=== PATIENT | male | born 1945 | race Caucasian/White ===

== ENCOUNTER 2017-03-11 15:30 | Observation (INO) | payer OTHER ==
[~2017-03-11] VITALS: Ht 182.9 cm; Wt 100.4 kg
[~2017-03-11 15:30] MED LIST: AMLODIPINE BESYL5 MG PO; HYDROCHLOROTHIA25 MG PO; LEVEMIR FL100 UNIT/1 SC; LISINOPRIL20 MG PO; LO-DOSE ASPIRIN81 M2 PO; LOPRESSOR25 MG PO; METFORMIN HCL1000 MG PO; TAMSULOSIN HCL0.4 MG PO; VITAMIN B12 100MCG PO; VITAMIN D-32000 UNI2 PO
[2017-03-11 16:47] LABS: HEMATOCRIT 36.4 % (38.0-50.0); MCHC 33.8 G/DL (30.0-36.0); MCV 88.8 FL (86-99); MEAN PLAT.VOLUME 10.3 uM^3 (9.0-12.4); PLATELET COUNT 223 K/uL (156-360); RBC DIS.WIDTH-CV 12.8 % (11.8-14.6); RBC DIS.WIDTH-SD 41.9 % (39-53); WHITE BLOOD COUNT 7.5 K/uL (4.1-10.2)
[2017-03-11 16:56] LABS: CHLORIDE 109 mEq/L (99-109); POTASSIUM 4.3 mEq/L (3.7-5.4); SODIUM 140 mEq/L (136-147)
[2017-03-11 16:58] LABS: GLUCOSE 183 mg/dL (70-99)
[2017-03-11 16:59] LABS: ANION GAP 10 MEQ/L (2-14)
[2017-03-11 17:02] LABS: GFR ESTIMATE (CALCULATED) 49 mL/min/; UREA NITROGEN (BUN) 27 mg/dL (9-23)
[2017-03-11] MEDS ORDERED: NOVOLOG 10100 UNITS/ SC (19:16)
[2017-03-11] MEDS ORDERED: NIZORAL SHAMPO120 ML TP (19:16)
[2017-03-11] MEDS ORDERED: PLAVIX75 MG PO (19:16)
[2017-03-11] MEDS ORDERED: SIMVASTATIN20 MG PO (19:16)
[2017-03-12 03:40] VITALS: BP 166/77
[2017-03-12 05:28] VITALS: BP 154/71
[2017-03-12 05:54] LABS: HEMATOCRIT 33.9 % (38.0-50.0); MCH 31.1 PG (29.0-34.0); MCHC 34.2 G/DL (30.0-36.0); MCV 90.9 FL (86-99); PLATELET COUNT 207 K/uL (156-360); RBC DIS.WIDTH-SD 42.7 % (39-53); RED BLOOD COUNT 3.73 M/uL (4.00-5.50); WHITE BLOOD COUNT 6.8 K/uL (4.1-10.2)
[2017-03-12 06:20] LABS: ALKALINE PHOSPHATASE 60 IU/L (3-129); ANION GAP 8 MEQ/L (2-14); CHLORIDE 109 MEQ/L (99-109); DIRECT BILIRUBIN 0.1 mg/dL (0.0-0.3); GFR ESTIMATE (CALCULATED) 45 mL/min/; GLUCOSE 167 mg/dL (70-99); HDL CHOLESTEROL 25 MG/DL (Desirable>=40); LDL CHOLESTEROL 72 mg/dL (Desirable<100); NON-HDL CHOLESTEROL 113 mg/dL (Desirable<160); POTASSIUM 4.3 MEQ/L (3.7-5.4); SAMPLE HEMOLYSIS CHECK 0; SAMPLE ICTERIC CHECK 0; SAMPLE LIPEMIA CHECK 0; SODIUM 142 MEQ/L (136-147); TOTAL BILIRUBIN 0.4 MG/DL (0.0-1.0); TOTAL CHOLESTEROL 138 mg/dL (Desirable<200); TRIGLYCERIDES 203 MG/DL (Normal: <150); UREA NITROGEN (BUN) 29 mg/dL (9-23)
[2017-03-12 06:28] LABS: Estimated Average Glucose 154 mg/dL (70-123)
[2017-03-12 07:29] VITALS: BP 162/82
[2017-03-12 11:19] VITALS: BP 169/82
[2017-03-12] MEDS ORDERED: ZESTRIL30 MG PO (13:47)
[2017-03-12] MEDS ORDERED: LOPRESSOR25 MG PO (13:47)
[2017-03-12] MEDS ORDERED: NORVASC5 MG PO (13:47)
== END 2017-03-12 15:24 | disposition home or self-care (01) ==
LOC: EME 15:30 → 5WEST 03-12 00:30 → EDOF 03-12 00:30 → ENRESERV 03-12 01:20 → 5WEST 03-12 02:16
PROVIDERS: Family Medicine
DX: G45.9 Transient cerebral ischemic attack, unspecified (principal); R42 Dizziness and giddiness; I10 Essential (primary) hypertension; I25.10 Atherosclerotic heart disease of native coronary artery without angina pectoris; E11.9 Type 2 diabetes mellitus without complications; E78.5 Hyperlipidemia, unspecified; Z86.73 Personal history of transient ischemic attack (TIA), and cerebral infarction without residual deficits; E66.9 Obesity, unspecified; Z68.30 Body mass index [BMI] 30.0-30.9, adult; Z79.4 Long term (current) use of insulin; Z79.82 Long term (current) use of aspirin
CPT/HCPCS: 70450; 71020; 80048; 80061; 80076; 82948; 83036; 84443; 85027; 93005; 99281; 99285; G0378; J7040

== ENCOUNTER → 2017-04-28 | Outpatient (CLI) | payer OTHER ==
[~2017-04-28] MED LIST changes: +NIZORAL SHAMPO120 ML TP; +NORVASC5 MG PO; +NOVOLOG 10100 UNITS/ SC; +PLAVIX75 MG PO; +SIMVASTATIN20 MG PO; +ZESTRIL30 MG PO
== END | disposition home or self-care (01) ==
LOC: RAD 03-30 13:30 → AMB 03-30 13:30 → RAD 03-30 14:00
PROC: 3E0R3KZ Introduction of Other Diagnostic Substance into Spinal Canal, Percutaneous Approach (ICD-10-PCS; principal; 2017-04-28)
DX: M48.061 Spinal stenosis, lumbar region without neurogenic claudication (principal); M51.26 Other intervertebral disc displacement, lumbar region; M53.86 Other specified dorsopathies, lumbar region; M85.88 Other specified disorders of bone density and structure, other site
CPT/HCPCS: 62304; 72114; 72132

== ENCOUNTER → 2017-05-19 | Outpatient (CLI) | payer OTHER | END | disposition home or self-care (01) | LOC: NUC 11:00 | DX: M41.86 Other forms of scoliosis, lumbar region (principal); M47.897 Other spondylosis, lumbosacral region; M19.042 Primary osteoarthritis, left hand; M19.041 Primary osteoarthritis, right hand; M17.0 Bilateral primary osteoarthritis of knee; M19.072 Primary osteoarthritis, left ankle and foot; M19.071 Primary osteoarthritis, right ankle and foot; Q60.0 Renal agenesis, unilateral; M54.41 Lumbago with sciatica, right side | CPT/HCPCS: 78306; A9503 ==